=== PATIENT | female | born 1945 | race Caucasian/White ===

== ENCOUNTER 2020-06-14 01:55 | Inpatient (IN) ==
[2020-06-14] MEDS ORDERED: *HR* Promethazine 25 MG/ML VIAL IVP PRN (04:06)
[2020-06-14] MEDS ORDERED: Naloxone 0.4 MG/ML INJ IVP PRN (04:06)
[2020-06-14] MEDS ORDERED: *HR* HYDROmorphone (PF) 1 MG/ML SYRINGE IVP PRN (04:12)
[2020-06-14] MEDS ORDERED: Pantoprazole 40 MG VIAL IVP ONE (04:14)
[2020-06-14] MEDS: 0.9 % Sodium Chloride 1,000 ML IVC SCH ×2 (05:01→16:17)
[2020-06-14 05:03] LABS: Basophils % 0.1 %
[2020-06-14 05:05] LABS: Hemoglobin 13.1 g/dL (11.5-15.4); Immature Granulocytes % 0.1 % (0-4); Immature Platelets 3.3 % (1.1-6.1); Lymphocytes # 0.4 K/mcL (0.6-4.6); Lymphocytes % 6.4 %; Mean Corpuscular HGB Conc 34.5 g/dL (31.6-35.5); Mean Corpuscular Hemoglobin 29.6 pg (28.0-33.3); Mean Platelet Volume 9.5 fL (9.4-12.4); Monocytes # 0.2 K/mcL (0.0-1.3); Monocytes % 2.4 %; Neutrophils # 6.1 K/mcL (1.6-8.9); Red Blood Count 4.42 M/mcL (3.82-4.97); Red Cell Distribution Width 13.4 % (11.5-14.5); White Blood Count 6.7 K/mcL (4.3-11.1)
[2020-06-14] MEDS ORDERED: 0.9 % Sodium Chloride 1,000 ML IV ONE (05:19)
[2020-06-14 05:25] LABS: Platelet Count 88 K/mcL (140-400)
[2020-06-14 05:27] LABS: Platelet Estimate Decreased (Normal)
[2020-06-14 05:28] LABS: Albumin 3.4 g/dL (3.5-5.7); Albumin/Globulin Ratio 1.5 (1.1-2.2); Bilirubin,Total 2.5 mg/dL (0.3-1.0); Calcium 8.1 mg/dL (8.6-10.3); Chol/HDL Ratio 2.1 (0-4.9); Globulin 2.3 g/dL (2.4-3.5); Magnesium 1.2 mg/dL (1.6-2.6); Phosphorous 1.8 mg/dL (2.7-4.5); Total Protein 5.7 g/dL (6.4-8.9)
[2020-06-14 05:31] LABS: INR 1.4; Prothrombin Time 16.3 Seconds (9.4-12.1)
[2020-06-14] MEDS ORDERED: Potassium Chloride 40 MEQ, Lidocaine 1% 2 ML in 0.9 % Sodium Chloride 500 ML IVPB ONE (06:46)
[2020-06-14] MEDS ORDERED: Potassium Phosphate 44 MEQ in 0.9 % Sodium Chloride 250 ML IVPB ONE (07:24)
[2020-06-14] MEDS: Acetaminophen IV 1,000 MG/100 ML INFUS..BTL IVPB SCH ×3 (10:35→23:28)
[2020-06-14] MEDS: MetroNIDAZOLE 500 MG/100 ML 500 MG/100 ML BAG IVPB SCH ×3 (10:51→23:29)
[2020-06-14] MEDS ORDERED: Lidocaine -MPF 2% 2 ML VIAL ONE (12:52)
[2020-06-14] MEDS ORDERED: *HR* Propofol 200 MG/20 ML VIAL IVP ONE (12:52)
[2020-06-14] MEDS ORDERED: Ondansetron 4 MG/2 ML VIAL ONE (12:52)
[2020-06-14] MEDS ORDERED: Dexamethasone 4 MG/ML VIAL ONE ×2 (12:52→13:03)
[2020-06-14] MEDS ORDERED: *HR* FentaNYL (PF) 100 MCG/2 ML VIAL ONE (12:52)
[2020-06-14] MEDS ORDERED: *HR* Succinylcholine 200 MG/10 ML VIAL IVP ONE (12:52)
[2020-06-14] MEDS ORDERED: Lidocaine -MPF 4% 5 ML AMPUL ONE (13:04)
[2020-06-14] MEDS ORDERED: *HR* PHENYLEPHRINE 1,000 MCG/10 ML SYRINGE IVP ONE (13:27)
[2020-06-14] MEDS ORDERED: Indomethacin 50 MG SUPP.RECT RC ONE (13:46)
[2020-06-15 05:24] LABS: Hematocrit 35.2 % (35.3-44.9); Hemoglobin 11.8 g/dL (11.5-15.4); Immature Platelets 6.9 % (1.1-6.1); Lymphocytes # 1.1 K/mcL (0.6-4.6); Mean Corpuscular HGB Conc 33.5 g/dL (31.6-35.5); Mean Corpuscular Volume 83.4 fL (83.0-100.0); Mean Platelet Volume 10.8 fL (9.4-12.4); Red Blood Count 4.22 M/mcL (3.82-4.97); Red Cell Distribution Width 13.6 % (11.5-14.5); White Blood Count 14.3 K/mcL (4.3-11.1)
[2020-06-15 05:31] LABS: Platelet Count 57 K/mcL (140-400)
[2020-06-15 05:40] LABS: Albumin/Globulin Ratio 1.2 (1.1-2.2); Bilirubin,Direct 0.5 mg/dL (0.0-0.2); Bilirubin,Indirect 0.9 mg/dL (0.0-1.0); Bilirubin,Total 1.4 mg/dL (0.3-1.0); Calcium 7.6 mg/dL (8.6-10.3); Globulin 2.5 g/dL (2.4-3.5); Potassium 3.3 mEq/L (3.5-5.1); Total Protein 5.5 g/dL (6.4-8.9)
[2020-06-15 05:50] LABS: Monocytes # 0.3 K/mcL (0.0-1.3); Neutrophils # 12.3 K/mcL (1.6-8.9)
[2020-06-15 05:51] LABS: Platelet Estimate Decreased (Normal)
[2020-06-15] MEDS ORDERED: Lidocaine -MPF 2% 2 ML VIAL ONE (07:11)
[2020-06-15] MEDS ORDERED: Ondansetron 4 MG/2 ML VIAL ONE (07:11)
[2020-06-15] MEDS ORDERED: Lidocaine HCL 4 ML Topical Solution (Laryng-O-Jet Kit Sterile Pak) TP ONE (07:11)
[2020-06-15] MEDS ORDERED: Dexamethasone 4 MG/ML VIAL ONE (07:11)
[2020-06-15] MEDS ORDERED: *HR* Succinylcholine 200 MG/10 ML VIAL IVP ONE (07:11)
[2020-06-15] MEDS ORDERED: *HR* Rocuronium Bromide 50 MG/5 ML VIAL ONE (07:11)
[2020-06-15] MEDS ORDERED: *HR* FentaNYL (PF) 100 MCG/2 ML VIAL ONE (07:12)
[2020-06-15] MEDS ORDERED: *HR* Propofol 200 MG/20 ML VIAL IVP ONE (07:13)
[2020-06-15] MEDS ORDERED: Ondansetron 4 MG/2 ML VIAL IVP PRN ×2 (07:37→11:09)
[2020-06-15] MEDS ORDERED: *HR* OxyCODONE Immed Rel 5 MG TABLET PO PRN ×2 (07:37→11:09)
[2020-06-15] MEDS ORDERED: *HR* HYDROmorphone PF 0.5 MG/0.5 ML SYRINGE IVP PRN (07:37)
[2020-06-15] MEDS: Acetaminophen IV 1,000 MG/100 ML INFUS..BTL IVPB SCH ×2 (07:45→16:58)
[2020-06-15] MEDS: MetroNIDAZOLE 500 MG/100 ML 500 MG/100 ML BAG IVPB SCH ×3 (07:47→16:59)
[2020-06-15 08:40] LABS: Magnesium 2.1 mg/dL (1.6-2.6); Phosphorous 2.3 mg/dL (2.7-4.5)
[2020-06-15] MEDS ORDERED: EPHEDrine 50 MG/ML VIAL ONE (08:41)
[2020-06-15] MEDS ORDERED: hydroCHLOROthiazide 25 MG TABLET PO SCH (09:00)
[2020-06-15] MEDS ORDERED: lisinopriL 10 MG TABLET PO SCH (09:00)
[2020-06-15] MEDS ORDERED: Naloxone 0.4 MG/ML INJ IVP PRN (11:09)
[2020-06-15] MEDS ORDERED: Potassium Phosphate 44 MEQ in 0.9 % Sodium Chloride 250 ML IVPB ONE (11:41)
[2020-06-16] MEDS: Acetaminophen IV 1,000 MG/100 ML INFUS..BTL IVPB SCH ×2 (00:24→07:45)
[2020-06-16] MEDS: MetroNIDAZOLE 500 MG/100 ML 500 MG/100 ML BAG IVPB SCH ×2 (00:25→08:05)
[2020-06-16 02:15] LABS: Basophils % 0.1 %; Hemoglobin 10.6 g/dL (11.5-15.4)
[2020-06-16 02:17] LABS: Immature Granulocytes % 2.3 % (0-4); Lymphocytes # 0.9 K/mcL (0.6-4.6); Lymphocytes % 7.7 %; Mean Corpuscular HGB Conc 33.1 g/dL (31.6-35.5); Mean Corpuscular Hemoglobin 27.8 pg (28.0-33.3); Monocytes # 0.9 K/mcL (0.0-1.3); Monocytes % 7.7 %; Neutrophils # 9.1 K/mcL (1.6-8.9); Red Blood Count 3.81 M/mcL (3.82-4.97); Red Cell Distribution Width 13.8 % (11.5-14.5); Segmented Neutrophils % 82.2 %; White Blood Count 11.1 K/mcL (4.3-11.1)
[2020-06-16 02:32] LABS: Platelet Count 73 K/mcL (140-400)
[2020-06-16 02:34] LABS: Albumin 2.7 g/dL (3.5-5.7); Albumin/Globulin Ratio 1.1 (1.1-2.2); Bilirubin,Total 0.7 mg/dL (0.3-1.0); Calcium 7.6 mg/dL (8.6-10.3); Globulin 2.4 g/dL (2.4-3.5); Potassium 3.4 mEq/L (3.5-5.1); Total Protein 5.1 g/dL (6.4-8.9)
[2020-06-16 03:00] LABS: Platelet Estimate Decreased (Normal)
[2020-06-16 07:04] VITALS: BP 176/73
[2020-06-16 07:38] LABS: Magnesium 2.2 mg/dL (1.6-2.6); Phosphorous 2.3 mg/dL (2.7-4.5)
[2020-06-16] MEDS ORDERED: lisinopriL 10 MG TABLET PO SCH (09:00)
[2020-06-16] MEDS ORDERED: hydroCHLOROthiazide 25 MG TABLET PO SCH (09:00)
[2020-06-16] MEDS ORDERED: Potassium Phosphate 44 MEQ in 0.9 % Sodium Chloride 250 ML IVPB ONE (10:02)
== END 2020-06-16 11:43 | disposition home or self-care (01) | DRG 854 ==
LOC: 3ANU → SUATTDRO 03:50
PROVIDERS: ADMIT Student in an Organized Health Care Education/Training Program; ATTEND Family Medicine